=== PATIENT | male | born 1960 | race Caucasian/White ===

== ENCOUNTER 2020-01-16 11:33 | Inpatient (IN) ==
[2020-01-16] MEDS ORDERED: Isovue-370 500 ML BOTTLE IVP ONE (11:57)
[2020-01-16 12:23] LABS: Hematocrit 45.1 % (37.5-50.1); Hemoglobin 14.3 g/dL (12.9-16.9); Mean Corpuscular HGB Conc 31.7 g/dL (31.6-35.5); Mean Corpuscular Hemoglobin 28.9 pg (28.0-33.3); Mean Corpuscular Volume 91.1 fL (83.0-100.0); Mean Platelet Volume 10.7 fL (9.4-12.4); Platelet Count 319 K/mcL (140-400); Red Blood Count 4.95 M/mcL (4.19-5.50); Red Cell Distribution Width 13.6 % (11.5-14.5); White Blood Count 8.8 K/mcL (4.3-11.1)
[2020-01-16 12:33] LABS: Activated Partial Thrombo Time 30.1 Seconds (26.0-36.0)
[2020-01-16 12:42] LABS: Alanine Aminotransferase 26 Units/L (7-52); Albumin 4.2 g/dL (3.5-5.7); Alkaline Phosphatase 120 Units/L (34-104); Aspartate Amino Transferase 31 Units/L (13-39); BUN/Creatinine Ratio 16 (6-26); Bilirubin,Direct 0.2 mg/dL (0.0-0.2); Bilirubin,Indirect 0.4 mg/dL (0.0-1.0); Bilirubin,Total 0.6 mg/dL (0.3-1.0); Blood Urea Nitrogen 12 mg/dL (8-23); Calcium 9.7 mg/dL (8.6-10.3); Carbon Dioxide 25 mEq/L (23-29); Chloride 103 mEq/L (98-107); Ethanol < 10 mg/dL (Less than 10); Globulin 4.1 g/dL (2.4-3.5); Glucose 141 mg/dL (70-105); Lipase 320 Units/L (11-82); Osmolality,Calculated 286 (280-300); Potassium 4.2 mEq/L (3.5-5.1); Sodium 137 mEq/L (136-145); Total Protein 8.3 g/dL (6.4-8.9); Troponin I 0.03 ng/mL (< 0.04); eGFR For African Americans > 60 (> 60); eGFR For Non-African Americans > 60 (> 60)
[2020-01-16] MEDS ORDERED: Naloxone 0.4 MG/ML INJ IVP PRN (13:32)
[2020-01-16] MEDS ORDERED: *HR* LORazepam 2 MG/ML VIAL IVP ONE ×5 (14:11→21:00)
[2020-01-16] MEDS ORDERED: Aspirin 325 MG TABLET PO ONE (15:14)
[2020-01-16] MEDS ORDERED: *HR* Heparin 5,000 UNIT/ML VIAL IVP ONE (15:18)
[2020-01-16] MEDS ORDERED: *HR* Heparin 5,000 UNIT/ML VIAL IVP PRN ×2 (15:18)
[2020-01-16] MEDS ORDERED: Perflutren Lipid Microsphere 1.3 ML in 0.9 % Sodium Chloride 8.7 ML IVP PRN (15:20)
[2020-01-16] MEDS ORDERED: *HR* Metoprolol 5 MG/5 ML VIAL IVP ONE (15:22)
[2020-01-16] MEDS: Heparin 25,000UNIT/250ML 1/2NS 25,000 UNIT/250 ML IV.SOLN IVC SCH (16:20)
[2020-01-16] MEDS ORDERED: Haloperidol Lactate 5 MG/ML VIAL IVP ONE (17:55)
[2020-01-16] MEDS: Dexmedetomidine HCl 400 MCG/100 ML MLS IVC SCH (19:39)
[2020-01-17] MEDS: Dexmedetomidine HCl 400 MCG/100 ML MLS IVC SCH ×3 (00:29→22:34)
[2020-01-17 07:59] LABS: Basophils % 0.5 %; Eosinophils # 0.2 K/mcL (0.0-0.6); Eosinophils % 1.9 %; Hematocrit 42.3 % (37.5-50.1); Immature Granulocytes % 0.4 % (0-4); Lymphocytes # 1.1 K/mcL (0.6-4.6); Lymphocytes % 13.1 %; Mean Corpuscular HGB Conc 33.1 g/dL (31.6-35.5); Mean Corpuscular Hemoglobin 29.6 pg (28.0-33.3); Mean Corpuscular Volume 89.4 fL (83.0-100.0); Mean Platelet Volume 10.9 fL (9.4-12.4); Monocytes # 0.8 K/mcL (0.0-1.3); Monocytes % 9.4 %; Neutrophils # 6.3 K/mcL (1.6-8.9); Platelet Count 257 K/mcL (140-400); Red Blood Count 4.73 M/mcL (4.19-5.50); Red Cell Distribution Width 13.4 % (11.5-14.5); Segmented Neutrophils % 74.7 %; White Blood Count 8.4 K/mcL (4.3-11.1)
[2020-01-17 08:19] LABS: BUN/Creatinine Ratio 18 (6-26); Blood Urea Nitrogen 13 mg/dL (8-23); Calcium 9.5 mg/dL (8.6-10.3); Carbon Dioxide 23 mEq/L (23-29); Chloride 105 mEq/L (98-107); Glucose 185 mg/dL (70-105); Osmolality,Calculated 287 (280-300); Sodium 136 mEq/L (136-145); eGFR For African Americans > 60 (> 60); eGFR For Non-African Americans > 60 (> 60)
[2020-01-17] MEDS ORDERED: *HR* LORazepam 2 MG/ML VIAL IVP ONE (08:56)
[2020-01-17 10:45] LABS: Amphetamine Screen,Urine Negative ng/mL (Cutoff=1000); Barbiturate Screen,Urine Negative ng/mL (Cutoff=200); Benzodiazepines Screen,Urine Negative ng/mL (Cutoff=200); Cannabinoid Screen,Urine Negative ng/mL (Cutoff = 50); Cocaine Screen,Urine Negative ng/mL (Cutoff= 300); Opiate Screen,Urine Positive ng/mL (Cutoff=300); Phencyclidine Screen,Urine Negative ng/mL (Cutoff=25)
[2020-01-17] MEDS: Heparin 25,000UNIT/250ML 1/2NS 25,000 UNIT/250 ML IV.SOLN IVC SCH (13:28)
[2020-01-18 01:27] LABS: BUN/Creatinine Ratio 17 (6-26); Blood Urea Nitrogen 12 mg/dL (8-23); Calcium 8.8 mg/dL (8.6-10.3); Carbon Dioxide 22 mEq/L (23-29); Chloride 107 mEq/L (98-107); Glucose 123 mg/dL (70-105); Osmolality,Calculated 287 (280-300); Potassium 3.7 mEq/L (3.5-5.1); Sodium 138 mEq/L (136-145); eGFR For African Americans > 60 (> 60); eGFR For Non-African Americans > 60 (> 60)
[2020-01-18] MEDS: Dexmedetomidine HCl 400 MCG/100 ML MLS IVC SCH ×3 (03:30→19:34)
[2020-01-18 04:18] LABS: Hematocrit 40.1 % (37.5-50.1); Mean Corpuscular HGB Conc 32.4 g/dL (31.6-35.5); Mean Corpuscular Hemoglobin 29.3 pg (28.0-33.3); Mean Corpuscular Volume 90.3 fL (83.0-100.0); Mean Platelet Volume 11.2 fL (9.4-12.4); Platelet Count 261 K/mcL (140-400); Red Blood Count 4.44 M/mcL (4.19-5.50); Red Cell Distribution Width 13.4 % (11.5-14.5)
[2020-01-18 04:19] LABS: Neutrophils # 5.3 K/mcL (1.6-8.9)
[2020-01-18 04:20] LABS: Basophils % 0.3 %; Eosinophils # 0.1 K/mcL (0.0-0.6); Eosinophils % 1.6 %; Immature Granulocytes % 0.3 % (0-4); Lymphocytes # 0.8 K/mcL (0.6-4.6); Lymphocytes % 11.8 %; Monocytes # 0.7 K/mcL (0.0-1.3)
[2020-01-18] MEDS: *HR* Heparin 5,000 UNIT/ML VIAL SQ SCH ×2 (14:44→19:36)
[2020-01-18] MEDS: lisinopriL 5 MG TABLET PO SCH (14:44)
[2020-01-18] MEDS: Ibuprofen 400 MG TABLET PO PRN (17:50)
[2020-01-19] MEDS: Dexmedetomidine HCl 400 MCG/100 ML MLS IVC SCH ×3 (00:15→11:09)
[2020-01-19] MEDS: *HR* Heparin 5,000 UNIT/ML VIAL SQ SCH (04:15)
[2020-01-19 07:24] LABS: BUN/Creatinine Ratio 15 (6-26); Blood Urea Nitrogen 11 mg/dL (8-23); Calcium 9.7 mg/dL (8.6-10.3); Carbon Dioxide 26 mEq/L (23-29); Chloride 104 mEq/L (98-107); Glucose 191 mg/dL (70-105); Magnesium 1.6 mg/dL (1.6-2.6); Osmolality,Calculated 289 (280-300); Potassium 4.2 mEq/L (3.5-5.1); Sodium 137 mEq/L (136-145); eGFR For African Americans > 60 (> 60); eGFR For Non-African Americans > 60 (> 60)
[2020-01-19] MEDS: Aspirin 81 MG TAB.CHEW PO SCH (07:47)
[2020-01-19] MEDS: Furosemide 20 MG TABLET PO SCH (07:47)
[2020-01-19] MEDS: lisinopriL 5 MG TABLET PO SCH (07:48)
[2020-01-19] MEDS ORDERED: lisinopriL 5 MG TABLET PO ONE (09:43)
[2020-01-19] MEDS ORDERED: *HR* LORazepam 2 MG/ML VIAL IVP PRN ×2 (10:49)
[2020-01-19] MEDS: Ibuprofen 400 MG TABLET PO PRN (14:30)
[2020-01-19] MEDS: carvediloL 6.25 MG TABLET PO SCH (17:28)
[2020-01-20 01:16] LABS: Hematocrit 43.3 % (37.5-50.1); Hemoglobin 13.4 g/dL (12.9-16.9); Mean Corpuscular HGB Conc 30.9 g/dL (31.6-35.5); Mean Corpuscular Volume 90.6 fL (83.0-100.0); Platelet Count 272 K/mcL (140-400); Red Blood Count 4.78 M/mcL (4.19-5.50); Red Cell Distribution Width 13.2 % (11.5-14.5); White Blood Count 7.8 K/mcL (4.3-11.1)
[2020-01-20 01:37] LABS: Alanine Aminotransferase 24 Units/L (7-52); Albumin 3.7 g/dL (3.5-5.7); Albumin/Globulin Ratio 1.1 (1.1-2.2); Alkaline Phosphatase 113 Units/L (34-104); Aspartate Amino Transferase 27 Units/L (13-39); BUN/Creatinine Ratio 15 (6-26); Bilirubin,Total 0.6 mg/dL (0.3-1.0); Blood Urea Nitrogen 11 mg/dL (8-23); Calcium 9.4 mg/dL (8.6-10.3); Carbon Dioxide 28 mEq/L (23-29); Chloride 100 mEq/L (98-107); Globulin 3.4 g/dL (2.4-3.5); Glucose 135 mg/dL (70-105); Osmolality,Calculated 283 (280-300); Potassium 3.6 mEq/L (3.5-5.1); Sodium 136 mEq/L (136-145); Total Protein 7.1 g/dL (6.4-8.9); eGFR For African Americans > 60 (> 60); eGFR For Non-African Americans > 60 (> 60)
[2020-01-20] MEDS: carvediloL 6.25 MG TABLET PO SCH ×2 (08:22→16:35)
[2020-01-20] MEDS: Furosemide 20 MG TABLET PO SCH (08:22)
[2020-01-20] MEDS: Aspirin 81 MG TAB.CHEW PO SCH (08:22)
[2020-01-20] MEDS: lisinopriL 5 MG TABLET PO SCH (08:24)
[2020-01-20] MEDS: Ibuprofen 400 MG TABLET PO PRN ×2 (10:57→22:24)
[2020-01-21 02:21] LABS: Hematocrit 43.3 % (37.5-50.1); Hemoglobin 13.9 g/dL (12.9-16.9); Mean Corpuscular HGB Conc 32.1 g/dL (31.6-35.5); Mean Corpuscular Hemoglobin 28.6 pg (28.0-33.3); Mean Corpuscular Volume 89.1 fL (83.0-100.0); Mean Platelet Volume 10.7 fL (9.4-12.4); Platelet Count 281 K/mcL (140-400); Red Blood Count 4.86 M/mcL (4.19-5.50); Red Cell Distribution Width 13.5 % (11.5-14.5)
[2020-01-21 02:37] LABS: Alanine Aminotransferase 31 Units/L (7-52); Albumin 3.6 g/dL (3.5-5.7); Albumin/Globulin Ratio 1.1 (1.1-2.2); Alkaline Phosphatase 108 Units/L (34-104); Aspartate Amino Transferase 37 Units/L (13-39); BUN/Creatinine Ratio 10 (6-26); Bilirubin,Total 0.8 mg/dL (0.3-1.0); Blood Urea Nitrogen 9 mg/dL (8-23); Calcium 9.1 mg/dL (8.6-10.3); Carbon Dioxide 29 mEq/L (23-29); Chloride 101 mEq/L (98-107); Globulin 3.4 g/dL (2.4-3.5); Glucose 143 mg/dL (70-105); Osmolality,Calculated 285 (280-300); Potassium 3.4 mEq/L (3.5-5.1); Sodium 137 mEq/L (136-145); eGFR For African Americans > 60 (> 60); eGFR For Non-African Americans > 60 (> 60)
[2020-01-21] MEDS: *HR* LORazepam 2 MG/ML VIAL IVP PRN ×2 (09:09→13:16)
[2020-01-21] MEDS: Furosemide 20 MG TABLET PO SCH (09:10)
[2020-01-21] MEDS: carvediloL 6.25 MG TABLET PO SCH ×2 (09:10→17:49)
[2020-01-21] MEDS: lisinopriL 5 MG TABLET PO SCH (09:10)
[2020-01-21] MEDS: Aspirin 81 MG TAB.CHEW PO SCH (09:10)
[2020-01-21] MEDS ORDERED: *HR* LORazepam 2 MG/ML VIAL IVP ONE (15:20)
[2020-01-21 16:21] VITALS: BP 121/71
[2020-01-21] MEDS ORDERED: Thiamine (B-1) 100 MG, Folic Acid 1 MG, MVI, adult with vitamin K 10 ML in 0.9 % Sodi... IVPB SCH (18:00)
== END 2020-01-21 17:56 | disposition short-term general hospital (02) | DRG 65 ==
LOC: EMEROOARM 11:33 → 3ANU 11:33 → 2NNU 19:03 → SUATTDRO 01-18 11:50 → 2NNU 01-18 15:14 → 3BNU 01-20 20:20
PROVIDERS: ADMIT Internal Medicine; ATTEND Family Medicine

== ENCOUNTER 2020-12-15 18:31 | Inpatient (IN) ==
[2020-12-15] MEDS ORDERED: Haloperidol Lactate 5 MG/ML VIAL IVP ONE (19:02)
[2020-12-15] MEDS ORDERED: *HR* LORazepam 2 MG/ML VIAL IVP ONE ×3 (19:02→22:23)
[2020-12-15] MEDS ORDERED: *HR* LORazepam 2 MG/ML VIAL ONE ×2 (19:07→22:24)
[2020-12-15] MEDS ORDERED: 0.9 % Sodium Chloride 1,000 ML IVC ONE (19:25)
[2020-12-15] MEDS ORDERED: Isovue-370 500 ML BOTTLE IVP ONE (19:25)
[2020-12-15] MEDS ORDERED: Ipratropium/Albuterol Neb 3 ML IH ONE ×2 (19:27→23:33)
[2020-12-15 20:27] LABS: Basophils % 0.1 %; Eosinophils % 0.2 %; Hematocrit 35.7 % (37.5-50.1); Hemoglobin 12.3 g/dL (12.9-16.9); Immature Granulocytes % 0.3 % (0-4); Lymphocytes % 7.2 %; Mean Corpuscular HGB Conc 34.5 g/dL (31.6-35.5); Mean Corpuscular Volume 84.2 fL (83.0-100.0); Mean Platelet Volume 10.4 fL (9.4-12.4); Monocytes # 1.2 K/mcL (0.0-1.3); Neutrophils # 12.1 K/mcL (1.6-8.9); Platelet Count 377 K/mcL (140-400); Red Blood Count 4.24 M/mcL (4.19-5.50); Segmented Neutrophils % 84.2 %; White Blood Count 14.4 K/mcL (4.3-11.1)
[2020-12-15 21:09] LABS: Alanine Aminotransferase 37 Units/L (7-52); Albumin/Globulin Ratio 1.1 (1.1-2.2); Alkaline Phosphatase 98 Units/L (34-104); Aspartate Amino Transferase 42 Units/L (13-39); BUN/Creatinine Ratio 13 (6-26); Bilirubin,Direct 0.1 mg/dL (0.0-0.2); Bilirubin,Indirect 0.5 mg/dL (0.0-1.0); Bilirubin,Total 0.6 mg/dL (0.3-1.0); Blood Urea Nitrogen 8 mg/dL (8-23); Calcium 7.9 mg/dL (8.6-10.3); Carbon Dioxide 19 mEq/L (23-29); Chloride 87 mEq/L (98-107); Ethanol 73 mg/dL (Less than 10); Globulin 3.7 g/dL (2.4-3.5); Glucose 165 mg/dL (70-105); Magnesium 1.8 mg/dL (1.6-2.6); Osmolality,Calculated 246 (280-300); Potassium 4.3 mEq/L (3.5-5.1); Sodium 117 mEq/L (136-145); Total Protein 7.7 g/dL (6.4-8.9); Troponin I 0.06 ng/mL (< 0.04); eGFR For African Americans > 60 (> 60); eGFR For Non-African Americans > 60 (> 60)
[2020-12-15 22:01] LABS: VBG HCO3 18 mEq/L (21-27); VBG PCO2 27 mmHg (41-51); VBG PH 7.44 pH Units (7.32-7.42); VBG PO2 202 mmHg (25-50)
[2020-12-15] MEDS: Folic Acid 1 MG in 0.9 % Sodium Chloride 50 ML IVPB SCH (23:10)
[2020-12-16] MEDS: Thiamine (B-1) 200 MG in 0.9 % Sodium Chloride 50 ML IVPB SCH ×2 (00:13→09:58)
[2020-12-16 00:37] LABS: Bilirubin,Urine Negative (Negative); Blood,Urine Trace (Negative); Clarity,Urine Clear (Clear); Color,Urine Colorless (Yellow); Glucose,Urine (UA) 70 mg/dL (Normal); Ketones,Urine Negative (Negative); Leukocyte Esterase,Urine Negative (Negative); Nitrite,Urine Negative (Negative); Protein,Urine Negative (Neg-Trace); RBC,Urine 0-3 per hpf (0-3); Specific Gravity,Urine 1.023 (1.010-1.025); Squamous Epithelial Cell,Urine Few per hpf (None-Few); Urobilinogen,Urine Normal (Normal); WBC,Urine 0-3 per hpf (0-3)
[2020-12-16 00:42] LABS: Potassium,Urine 21.8 mEq/L; Sodium, Urine 16.4 mEq/L
[2020-12-16 00:57] LABS: BUN/Creatinine Ratio 9 (6-26); Blood Urea Nitrogen 7 mg/dL (8-23); Calcium 7.8 mg/dL (8.6-10.3); Carbon Dioxide 20 mEq/L (23-29); Chloride 90 mEq/L (98-107); Glucose 144 mg/dL (70-105); Osmolality,Calculated 251 (280-300); Potassium 4.4 mEq/L (3.5-5.1); Sodium 120 mEq/L (136-145); eGFR For African Americans > 60 (> 60); eGFR For Non-African Americans > 60 (> 60)
[2020-12-16] MEDS ORDERED: Naloxone 0.4 MG/ML INJ IVP PRN (02:17)
[2020-12-16] MEDS: *HR* LORazepam 2 MG/ML VIAL IVP PRN ×11 (03:33→20:59)
[2020-12-16] MEDS ORDERED: Perflutren Lipid Microsphere 1.3 ML in 0.9 % Sodium Chloride 8.7 ML IVP PRN (03:44)
[2020-12-16] MEDS ORDERED: Ondansetron 4 MG/2 ML VIAL IVP PRN (04:23)
[2020-12-16] MEDS: 0.9 % Sodium Chloride 1,000 ML IVC SCH ×2 (05:00→22:43)
[2020-12-16 05:16] LABS: Basophils % 0.1 %; Eosinophils % 0.2 %; Hematocrit 35.6 % (37.5-50.1); Immature Granulocytes % 0.3 % (0-4); Lymphocytes # 1.1 K/mcL (0.6-4.6); Lymphocytes % 7.9 %; Mean Corpuscular HGB Conc 33.7 g/dL (31.6-35.5); Mean Corpuscular Hemoglobin 28.4 pg (28.0-33.3); Mean Corpuscular Volume 84.4 fL (83.0-100.0); Mean Platelet Volume 10.2 fL (9.4-12.4); Monocytes # 1.7 K/mcL (0.0-1.3); Monocytes % 11.6 %; Neutrophils # 11.4 K/mcL (1.6-8.9); Platelet Count 295 K/mcL (140-400); Red Blood Count 4.22 M/mcL (4.19-5.50); Red Cell Distribution Width 13.8 % (11.5-14.5); Segmented Neutrophils % 79.9 %; White Blood Count 14.3 K/mcL (4.3-11.1)
[2020-12-16 05:31] LABS: BUN/Creatinine Ratio 12 (6-26); Blood Urea Nitrogen 9 mg/dL (8-23); Calcium 8.3 mg/dL (8.6-10.3); Carbon Dioxide 21 mEq/L (23-29); Chloride 91 mEq/L (98-107); Glucose 150 mg/dL (70-105); INR 1.7; Osmolality,Calculated 254 (280-300); Potassium 4.5 mEq/L (3.5-5.1); Prothrombin Time 19.7 Seconds (9.4-12.1); Sodium 121 mEq/L (136-145); eGFR For African Americans > 60 (> 60); eGFR For Non-African Americans > 60 (> 60)
[2020-12-16 07:00] LABS: Adenovirus Not Detected (Not Detect); Bordetella Pertussis Not Detected (Not Detect); Chlamydophila pneumoniae Not Detected (Not Detect); Coronavirus 229E Not Detected (Not Detect); Coronavirus HKU1 Not Detected (Not Detect); Coronavirus NL63 Not Detected (Not Detect); Coronavirus OC43 Not Detected (Not Detect); Human Metapneumovirus Not Detected (Not Detect); Human Rhinovirus/Enterovirus Not Detected (Not Detect); Influenza A Subtype 2009 H1 Not Detected (Not Detect); Influenza B Not Detected (Not Detect); Mycoplasma pneumoniae Not Detected (Not Detect); Parainfluenza Virus 1 Not Detected (Not Detect); Parainfluenza Virus 2 Not Detected (Not Detect); Parainfluenza Virus 3 Not Detected (Not Detect); Parainfluenza Virus 4 Not Detected (Not Detect); Respiratory Syncytial Virus Not Detected (Not Detect); SARS-CoV-2 Not Detected (Not Detect)
[2020-12-16 07:01] LABS: BUN/Creatinine Ratio 13 (6-26); Blood Urea Nitrogen 9 mg/dL (8-23); Calcium 8.2 mg/dL (8.6-10.3); Carbon Dioxide 21 mEq/L (23-29); Chloride 92 mEq/L (98-107); Glucose 155 mg/dL (70-105); Osmolality,Calculated 254 (280-300); Potassium 4.7 mEq/L (3.5-5.1); Sodium 121 mEq/L (136-145); Thyroid Stimulating Hormone 1.734 mcIU/mL (0.340-5.600); Troponin I 0.05 ng/mL (< 0.04); eGFR For African Americans > 60 (> 60); eGFR For Non-African Americans > 60 (> 60)
[2020-12-16] MEDS ORDERED: Thiamine (B-1) 200 MG in 0.9 % Sodium Chloride 50 ML IVPB SCH (09:00)
[2020-12-16] MEDS: Folic Acid 1 MG in 0.9 % Sodium Chloride 50 ML IVPB SCH (09:54)
[2020-12-16 12:23] LABS: Basophils % 0.3 %; Eosinophils % 0.3 %; Hematocrit 33.2 % (37.5-50.1); Hemoglobin 10.9 g/dL (12.9-16.9); Immature Granulocytes % 0.4 % (0-4); Lymphocytes % 8.2 %; Mean Corpuscular HGB Conc 32.8 g/dL (31.6-35.5); Mean Corpuscular Hemoglobin 27.9 pg (28.0-33.3); Mean Corpuscular Volume 85.1 fL (83.0-100.0); Mean Platelet Volume 10.4 fL (9.4-12.4); Monocytes # 1.2 K/mcL (0.0-1.3); Monocytes % 9.9 %; Neutrophils # 9.7 K/mcL (1.6-8.9); Platelet Count 296 K/mcL (140-400); Red Cell Distribution Width 13.9 % (11.5-14.5); Segmented Neutrophils % 80.9 %
[2020-12-16 13:00] LABS: BUN/Creatinine Ratio 13 (6-26); Blood Urea Nitrogen 9 mg/dL (8-23); Calcium 8.1 mg/dL (8.6-10.3); Carbon Dioxide 22 mEq/L (23-29); Chloride 95 mEq/L (98-107); Glucose 152 mg/dL (70-105); Osmolality,Calculated 260 (280-300); Potassium 4.5 mEq/L (3.5-5.1); Sodium 124 mEq/L (136-145); Troponin I 0.05 ng/mL (< 0.04); eGFR For African Americans > 60 (> 60); eGFR For Non-African Americans > 60 (> 60)
[2020-12-16] MEDS: Dexmedetomidine HCl 400 MCG/100 ML MLS IVC SCH (14:52)
[2020-12-16 15:40] LABS: Magnesium 1.8 mg/dL (1.6-2.6)
[2020-12-16] MEDS: *HR* Enoxaparin 120 MG/0.8 ML SYRINGE SQ SCH (20:01)
[2020-12-16 20:32] LABS: Basophils % 0.1 %; Eosinophils # 0.1 K/mcL (0.0-0.6); Eosinophils % 1.6 %; Hematocrit 30.1 % (37.5-50.1); Hemoglobin 10.1 g/dL (12.9-16.9); Immature Granulocytes % 0.4 % (0-4); Lymphocytes # 0.7 K/mcL (0.6-4.6); Mean Corpuscular HGB Conc 33.6 g/dL (31.6-35.5); Mean Corpuscular Hemoglobin 28.7 pg (28.0-33.3); Mean Corpuscular Volume 85.5 fL (83.0-100.0); Mean Platelet Volume 10.5 fL (9.4-12.4); Monocytes # 0.8 K/mcL (0.0-1.3); Monocytes % 9.7 %; Neutrophils # 6.3 K/mcL (1.6-8.9); Platelet Count 249 K/mcL (140-400); Red Blood Count 3.52 M/mcL (4.19-5.50); Segmented Neutrophils % 79.2 %
[2020-12-16 20:51] LABS: BUN/Creatinine Ratio 15 (6-26); Blood Urea Nitrogen 9 mg/dL (8-23); Carbon Dioxide 23 mEq/L (23-29); Chloride 102 mEq/L (98-107); Glucose 151 mg/dL (70-105); Osmolality,Calculated 272 (280-300); Potassium 4.1 mEq/L (3.5-5.1); Sodium 130 mEq/L (136-145); eGFR For African Americans > 60 (> 60); eGFR For Non-African Americans > 60 (> 60)
[2020-12-16] MEDS ORDERED: Haloperidol Lactate 5 MG/ML VIAL IVP ONE (21:29)
[2020-12-16 23:07] LABS: Staphylococcus by PCR DETECTED (Not Detect); mecA Methicillin-Resist Gene Not Detected (Not Detect)
[2020-12-16 23:08] LABS: Acinetobacter baumannii by PCR Not Detected (Not Detect); Candida albicans by PCR Not Detected (Not Detect); Candida glabrata by PCR Not Detected (Not Detect); Candida krusei by PCR Not Detected (Not Detect); Candida parapsilosis by PCR Not Detected (Not Detect); Candida tropicalis by PCR Not Detected (Not Detect); Enterobacter cloacae Cmplx PCR Not Detected (Not Detect); Enterobacteriaceae by PCR Not Detected (Not Detect); Enterococcus by PCR Not Detected (Not Detect); Escherichia coli by PCR Not Detected (Not Detect); Klebsiella oxytoca by PCR Not Detected (Not Detect); Klebsiella pneumoniae by PCR Not Detected (Not Detect); Proteus by PCR Not Detected (Not Detect); Pseudomonas aeruginosa by PCR Not Detected (Not Detect); Serratia marcescens by PCR Not Detected (Not Detect); Staphylococcus aureus by PCR Not Detected (Not Detect); Streptococcus agalactiae(B)PCR Not Detected (Not Detect); Streptococcus by PCR Not Detected (Not Detect); Streptococcus pneumoniae PCR Not Detected (Not Detect); Streptococcus pyogenes (A) PCR Not Detected (Not Detect)
[2020-12-17] MEDS: Dexmedetomidine HCl 400 MCG/100 ML MLS IVC SCH ×5 (03:02→22:24)
[2020-12-17] MEDS: *HR* LORazepam 2 MG/ML VIAL IVP PRN ×5 (03:03→22:20)
[2020-12-17 03:56] LABS: Basophils % 0.5 %; Eosinophils # 0.2 K/mcL (0.0-0.6); Eosinophils % 2.1 %; Hematocrit 33.1 % (37.5-50.1); Immature Granulocytes % 0.4 % (0-4); Lymphocytes # 0.9 K/mcL (0.6-4.6); Lymphocytes % 11.2 %; Mean Corpuscular HGB Conc 33.2 g/dL (31.6-35.5); Mean Corpuscular Hemoglobin 28.7 pg (28.0-33.3); Mean Corpuscular Volume 86.4 fL (83.0-100.0); Mean Platelet Volume 10.9 fL (9.4-12.4); Monocytes # 0.7 K/mcL (0.0-1.3); Monocytes % 9.3 %; Neutrophils # 5.9 K/mcL (1.6-8.9); Platelet Count 269 K/mcL (140-400); Red Blood Count 3.83 M/mcL (4.19-5.50); Segmented Neutrophils % 76.5 %; White Blood Count 7.8 K/mcL (4.3-11.1)
[2020-12-17 04:18] LABS: Alanine Aminotransferase 26 Units/L (7-52); Albumin 3.3 g/dL (3.5-5.7); Albumin/Globulin Ratio 1.1 (1.1-2.2); Alkaline Phosphatase 96 Units/L (34-104); Aspartate Amino Transferase 31 Units/L (13-39); BUN/Creatinine Ratio 14 (6-26); Bilirubin,Total 1.1 mg/dL (0.3-1.0); Blood Urea Nitrogen 8 mg/dL (8-23); Calcium 8.3 mg/dL (8.6-10.3); Carbon Dioxide 22 mEq/L (23-29); Chloride 106 mEq/L (98-107); Globulin 3.1 g/dL (2.4-3.5); Glucose 171 mg/dL (70-105); Osmolality,Calculated 280 (280-300); Sodium 134 mEq/L (136-145); Total Protein 6.4 g/dL (6.4-8.9); eGFR For African Americans > 60 (> 60); eGFR For Non-African Americans > 60 (> 60)
[2020-12-17] MEDS ORDERED: D5% in Water 1,000 ML IVC SCH (06:00)
[2020-12-17] MEDS: *HR* Enoxaparin 120 MG/0.8 ML SYRINGE SQ SCH ×2 (06:09→16:57)
[2020-12-17] MEDS: Levalbuterol Neb 0.63 MG/3 ML IH PRN (09:45)
[2020-12-17 11:03] LABS: BUN/Creatinine Ratio 16 (6-26); Blood Urea Nitrogen 9 mg/dL (8-23); Calcium 8.2 mg/dL (8.6-10.3); Carbon Dioxide 22 mEq/L (23-29); Chloride 107 mEq/L (98-107); Glucose 199 mg/dL (70-105); Osmolality,Calculated 284 (280-300); Potassium 4.2 mEq/L (3.5-5.1); Sodium 135 mEq/L (136-145); eGFR For African Americans > 60 (> 60); eGFR For Non-African Americans > 60 (> 60)
[2020-12-17] MEDS ORDERED: Thiamine (B-1) 100 MG, Folic Acid 1 MG, MVI, adult with vitamin K 10 ML in 0.9 % Sodi... IVPB SCH (13:00)
[2020-12-17] MEDS: Doxycycline 100 MG in 0.9 % Sodium Chloride Mini Bag 100 ML IVPB SCH ×2 (13:20→16:58)
[2020-12-17] MEDS: Folic Acid 1 MG in 0.9 % Sodium Chloride 50 ML IVPB SCH (13:21)
[2020-12-17] MEDS: Thiamine (B-1) 200 MG in 0.9 % Sodium Chloride 50 ML IVPB SCH (13:21)
[2020-12-17 22:32] LABS: BUN/Creatinine Ratio 14 (6-26); Blood Urea Nitrogen 9 mg/dL (8-23); Calcium 8.1 mg/dL (8.6-10.3); Carbon Dioxide 24 mEq/L (23-29); Chloride 107 mEq/L (98-107); Glucose 163 mg/dL (70-105); Osmolality,Calculated 284 (280-300); Sodium 136 mEq/L (136-145); eGFR For African Americans > 60 (> 60); eGFR For Non-African Americans > 60 (> 60)
[2020-12-18] MEDS: Dexmedetomidine HCl 400 MCG/100 ML MLS IVC SCH ×2 (03:23→20:32)
[2020-12-18] MEDS: Doxycycline 100 MG in 0.9 % Sodium Chloride Mini Bag 100 ML IVPB SCH ×2 (04:34→21:07)
[2020-12-18] MEDS: *HR* Enoxaparin 120 MG/0.8 ML SYRINGE SQ SCH ×2 (04:36→21:06)
[2020-12-18 05:39] LABS: Basophils # 0.1 K/mcL (0.0-0.2); Basophils % 0.5 %; Eosinophils # 0.3 K/mcL (0.0-0.6); Eosinophils % 2.5 %; Hematocrit 33.6 % (37.5-50.1); Hemoglobin 10.8 g/dL (12.9-16.9); Immature Granulocytes % 0.7 % (0-4); Lymphocytes # 1.1 K/mcL (0.6-4.6); Lymphocytes % 10.6 %; Mean Corpuscular HGB Conc 32.1 g/dL (31.6-35.5); Mean Corpuscular Hemoglobin 27.9 pg (28.0-33.3); Mean Corpuscular Volume 86.8 fL (83.0-100.0); Mean Platelet Volume 10.8 fL (9.4-12.4); Monocytes # 0.9 K/mcL (0.0-1.3); Monocytes % 8.9 %; Neutrophils # 7.7 K/mcL (1.6-8.9); Platelet Count 298 K/mcL (140-400); Red Blood Count 3.87 M/mcL (4.19-5.50); Red Cell Distribution Width 14.2 % (11.5-14.5); Segmented Neutrophils % 76.8 %
[2020-12-18 05:44] LABS: Alanine Aminotransferase 23 Units/L (7-52); Albumin 3.3 g/dL (3.5-5.7); Albumin/Globulin Ratio 1.1 (1.1-2.2); Alkaline Phosphatase 103 Units/L (34-104); Aspartate Amino Transferase 20 Units/L (13-39); BUN/Creatinine Ratio 14 (6-26); Bilirubin,Direct 0.2 mg/dL (0.0-0.2); Bilirubin,Indirect 0.5 mg/dL (0.0-1.0); Bilirubin,Total 0.7 mg/dL (0.3-1.0); Blood Urea Nitrogen 9 mg/dL (8-23); Calcium 8.3 mg/dL (8.6-10.3); Carbon Dioxide 25 mEq/L (23-29); Chloride 107 mEq/L (98-107); Globulin 2.9 g/dL (2.4-3.5); Glucose 147 mg/dL (70-105); Magnesium 2.2 mg/dL (1.6-2.6); Osmolality,Calculated 283 (280-300); Potassium 3.9 mEq/L (3.5-5.1); Sodium 136 mEq/L (136-145); Total Protein 6.2 g/dL (6.4-8.9); eGFR For African Americans > 60 (> 60); eGFR For Non-African Americans > 60 (> 60)
[2020-12-18 06:21] LABS: INR 1.6; Prothrombin Time 18.4 Seconds (9.4-12.1)
[2020-12-18] MEDS: *HR* LORazepam 2 MG/ML VIAL IVP PRN ×4 (06:50→21:01)
[2020-12-18] MEDS: Aspirin Enteric Coated 81 MG Tablet PO SCH (08:14)
[2020-12-18] MEDS ORDERED: lisinopriL 5 MG TABLET PO SCH (09:00)
[2020-12-18 10:49] LABS: Magnesium 2.3 mg/dL (1.6-2.6); Phosphorous 2.1 mg/dL (2.7-4.5)
[2020-12-18] MEDS ORDERED: Thiamine (B-1) 100 MG, Folic Acid 1 MG, MVI, adult with vitamin K 10 ML in 0.9 % Sodi... IVPB SCH (13:00)
[2020-12-19] MEDS: Dexmedetomidine HCl 400 MCG/100 ML MLS IVC SCH ×3 (00:06→09:40)
[2020-12-19 02:56] LABS: Basophils % 0.4 %; Eosinophils # 0.3 K/mcL (0.0-0.6); Eosinophils % 2.7 %; Hematocrit 34.1 % (37.5-50.1); Hemoglobin 11.1 g/dL (12.9-16.9); Immature Granulocytes % 0.6 % (0-4); Lymphocytes # 1.3 K/mcL (0.6-4.6); Lymphocytes % 12.6 %; Mean Corpuscular HGB Conc 32.6 g/dL (31.6-35.5); Mean Corpuscular Hemoglobin 28.5 pg (28.0-33.3); Mean Corpuscular Volume 87.4 fL (83.0-100.0); Mean Platelet Volume 10.5 fL (9.4-12.4); Monocytes # 1.1 K/mcL (0.0-1.3); Monocytes % 9.8 %; Neutrophils # 7.9 K/mcL (1.6-8.9); Platelet Count 315 K/mcL (140-400); Red Cell Distribution Width 14.3 % (11.5-14.5); Segmented Neutrophils % 73.9 %; White Blood Count 10.7 K/mcL (4.3-11.1)
[2020-12-19 03:05] LABS: INR 1.5; Prothrombin Time 16.2 Seconds (9.4-12.1)
[2020-12-19 03:10] LABS: BUN/Creatinine Ratio 17 (6-26); Blood Urea Nitrogen 9 mg/dL (8-23); Calcium 8.4 mg/dL (8.6-10.3); Carbon Dioxide 21 mEq/L (23-29); Chloride 108 mEq/L (98-107); Glucose 140 mg/dL (70-105); Osmolality,Calculated 283 (280-300); Potassium 3.8 mEq/L (3.5-5.1); Sodium 136 mEq/L (136-145); eGFR For African Americans > 60 (> 60); eGFR For Non-African Americans > 60 (> 60)
[2020-12-19] MEDS: *HR* LORazepam 2 MG/ML VIAL IVP PRN ×2 (05:37→23:12)
[2020-12-19] MEDS: *HR* Enoxaparin 120 MG/0.8 ML SYRINGE SQ SCH ×2 (05:41→18:24)
[2020-12-19] MEDS: Doxycycline 100 MG in 0.9 % Sodium Chloride Mini Bag 100 ML IVPB SCH ×2 (05:42→18:23)
[2020-12-19] MEDS ORDERED: Furosemide 20 MG/2 ML VIAL IVP ONE (09:53)
[2020-12-19] MEDS ORDERED: Sennosides/Docusate Sodium TABLET PO ONE (12:47)
[2020-12-19] MEDS: Aspirin Enteric Coated 81 MG Tablet PO SCH (16:10)
[2020-12-19] MEDS: lisinopriL 5 MG TABLET PO SCH (16:11)
[2020-12-19] MEDS: Furosemide 40 MG TABLET PO SCH (16:11)
[2020-12-19] MEDS: Levalbuterol Neb 0.63 MG/3 ML IH PRN (17:20)
[2020-12-20] MEDS: *HR* LORazepam 2 MG/ML VIAL IVP PRN ×4 (01:29→18:24)
[2020-12-20] MEDS ORDERED: *HR* Metoprolol 5 MG/5 ML VIAL IVP ONE ×2 (02:58→18:00)
[2020-12-20] MEDS: Levalbuterol Neb 0.63 MG/3 ML IH PRN (03:29)
[2020-12-20 05:50] LABS: Basophils # 0.1 K/mcL (0.0-0.2); Basophils % 0.6 %; Eosinophils # 0.2 K/mcL (0.0-0.6); Eosinophils % 1.7 %; Hematocrit 36.5 % (37.5-50.1); Hemoglobin 11.8 g/dL (12.9-16.9); Immature Granulocytes % 0.8 % (0-4); Lymphocytes # 1.5 K/mcL (0.6-4.6); Lymphocytes % 13.7 %; Mean Corpuscular HGB Conc 32.3 g/dL (31.6-35.5); Mean Corpuscular Hemoglobin 28.6 pg (28.0-33.3); Mean Corpuscular Volume 88.4 fL (83.0-100.0); Mean Platelet Volume 9.9 fL (9.4-12.4); Monocytes # 1.2 K/mcL (0.0-1.3); Monocytes % 11.5 %; Neutrophils # 7.6 K/mcL (1.6-8.9); Platelet Count 384 K/mcL (140-400); Red Blood Count 4.13 M/mcL (4.19-5.50); Red Cell Distribution Width 15.1 % (11.5-14.5); Segmented Neutrophils % 71.7 %; White Blood Count 10.6 K/mcL (4.3-11.1)
[2020-12-20 05:56] LABS: INR 1.3; Prothrombin Time 14.2 Seconds (9.4-12.1)
[2020-12-20] MEDS: Doxycycline 100 MG in 0.9 % Sodium Chloride Mini Bag 100 ML IVPB SCH ×2 (05:56→17:56)
[2020-12-20] MEDS: *HR* Enoxaparin 120 MG/0.8 ML SYRINGE SQ SCH ×2 (05:56→17:56)
[2020-12-20 06:08] LABS: BUN/Creatinine Ratio 16 (6-26); Blood Urea Nitrogen 12 mg/dL (8-23); Calcium 9.1 mg/dL (8.6-10.3); Carbon Dioxide 23 mEq/L (23-29); Chloride 104 mEq/L (98-107); Glucose 94 mg/dL (70-105); Osmolality,Calculated 284 (280-300); Phosphorous 3.3 mg/dL (2.7-4.5); Potassium 3.7 mEq/L (3.5-5.1); Sodium 137 mEq/L (136-145); eGFR For African Americans > 60 (> 60); eGFR For Non-African Americans > 60 (> 60)
[2020-12-20] MEDS ORDERED: Metoprolol XL (24 HR) Succ 25 MG TAB.ER.24H PO SCH (09:00)
[2020-12-20] MEDS: Aspirin Enteric Coated 81 MG Tablet PO SCH (09:46)
[2020-12-20] MEDS: lisinopriL 5 MG TABLET PO SCH (09:46)
[2020-12-20] MEDS: Furosemide 40 MG TABLET PO SCH (09:46)
[2020-12-20] MEDS ORDERED: Potassium Chloride Elixir 20 MEQ/15 ML UDC PO ONE (13:16)
[2020-12-20] MEDS ORDERED: *HR* Warfarin 3 MG TABLET PO ONE (18:00)
[2020-12-20] MEDS ORDERED: Warfarin perPT PO PRN (18:00)
[2020-12-20] MEDS: Metoprolol XL (24 HR) Succ 25 MG TAB.ER.24H PO SCH (20:23)
[2020-12-21] MEDS: *HR* LORazepam 2 MG/ML VIAL IVP PRN ×5 (00:52→17:30)
[2020-12-21 01:40] LABS: INR 1.3; Prothrombin Time 14.8 Seconds (9.4-12.1)
[2020-12-21 01:49] LABS: BUN/Creatinine Ratio 18 (6-26); Blood Urea Nitrogen 16 mg/dL (8-23); Calcium 9.4 mg/dL (8.6-10.3); Carbon Dioxide 19 mEq/L (23-29); Chloride 102 mEq/L (98-107); Glucose 119 mg/dL (70-105); Osmolality,Calculated 280 (280-300); Potassium 3.8 mEq/L (3.5-5.1); Sodium 134 mEq/L (136-145); eGFR For African Americans > 60 (> 60); eGFR For Non-African Americans > 60 (> 60)
[2020-12-21] MEDS: Doxycycline 100 MG in 0.9 % Sodium Chloride Mini Bag 100 ML IVPB SCH ×2 (05:53→17:30)
[2020-12-21] MEDS: *HR* Enoxaparin 120 MG/0.8 ML SYRINGE SQ SCH ×2 (05:53→17:43)
[2020-12-21] MEDS: Aspirin Enteric Coated 81 MG Tablet PO SCH (07:38)
[2020-12-21] MEDS: Metoprolol XL (24 HR) Succ 25 MG TAB.ER.24H PO SCH ×3 (07:38→21:08)
[2020-12-21] MEDS: lisinopriL 5 MG TABLET PO SCH (07:38)
[2020-12-21] MEDS: Acetaminophen 325 MG TABLET PO PRN (11:52)
[2020-12-21] MEDS: levETIRAcetam 250 MG TABLET PO SCH (17:30)
[2020-12-21] MEDS ORDERED: *HR* Warfarin 5 MG TABLET PO ONE (18:00)
[2020-12-22] MEDS: *HR* LORazepam 2 MG/ML VIAL IVP PRN ×4 (01:53→17:28)
[2020-12-22 05:35] LABS: INR 1.4; Prothrombin Time 15.2 Seconds (9.4-12.1)
[2020-12-22 05:59] LABS: BUN/Creatinine Ratio 15 (6-26); Blood Urea Nitrogen 11 mg/dL (8-23); Calcium 9.1 mg/dL (8.6-10.3); Carbon Dioxide 21 mEq/L (23-29); Chloride 105 mEq/L (98-107); Glucose 135 mg/dL (70-105); Magnesium 1.7 mg/dL (1.6-2.6); Osmolality,Calculated 281 (280-300); Potassium 4.2 mEq/L (3.5-5.1); Sodium 135 mEq/L (136-145); eGFR For African Americans > 60 (> 60); eGFR For Non-African Americans > 60 (> 60)
[2020-12-22] MEDS: levETIRAcetam 250 MG TABLET PO SCH ×2 (06:14→17:29)
[2020-12-22] MEDS: *HR* Enoxaparin 120 MG/0.8 ML SYRINGE SQ SCH (06:14)
[2020-12-22 08:38] LABS: Thyroid Stimulating Hormone 1.705 mcIU/mL (0.340-5.600)
[2020-12-22] MEDS: Aspirin Enteric Coated 81 MG Tablet PO SCH (09:19)
[2020-12-22] MEDS: Metoprolol XL (24 HR) Succ 25 MG TAB.ER.24H PO SCH ×2 (09:19→21:14)
[2020-12-22] MEDS: lisinopriL 5 MG TABLET PO SCH (09:20)
[2020-12-22] MEDS: Doxycycline 100 MG in 0.9 % Sodium Chloride Mini Bag 100 ML IVPB SCH ×2 (09:21→21:13)
[2020-12-22] MEDS: Nicotine 21 MG PATCH.TD24 TD SCH (12:34)
[2020-12-22] MEDS: *HR* Enoxaparin 100 MG/ML SYRINGE SQ SCH (17:29)
[2020-12-22] MEDS ORDERED: *HR* Warfarin 5 MG TABLET PO ONE (18:00)
[2020-12-22] MEDS: Acetaminophen 325 MG TABLET PO PRN (21:24)
[2020-12-23] MEDS ORDERED: *HR* LORazepam 2 MG/ML VIAL IVP ONE (04:42)
[2020-12-23] MEDS: *HR* Enoxaparin 100 MG/ML SYRINGE SQ SCH ×2 (04:49→16:31)
[2020-12-23] MEDS: levETIRAcetam 250 MG TABLET PO SCH ×2 (04:49→16:31)
[2020-12-23 06:21] LABS: Basophils % 0.5 %; Eosinophils # 0.5 K/mcL (0.0-0.6); Eosinophils % 5.8 %; Hematocrit 35.2 % (37.5-50.1); Hemoglobin 11.2 g/dL (12.9-16.9); Immature Granulocytes % 0.6 % (0-4); Lymphocytes # 1.8 K/mcL (0.6-4.6); Lymphocytes % 23.1 %; Mean Corpuscular HGB Conc 31.8 g/dL (31.6-35.5); Mean Corpuscular Hemoglobin 28.2 pg (28.0-33.3); Mean Corpuscular Volume 88.7 fL (83.0-100.0); Mean Platelet Volume 10.4 fL (9.4-12.4); Monocytes # 0.9 K/mcL (0.0-1.3); Monocytes % 11.6 %; Neutrophils # 4.6 K/mcL (1.6-8.9); Platelet Count 379 K/mcL (140-400); Red Blood Count 3.97 M/mcL (4.19-5.50); Red Cell Distribution Width 15.4 % (11.5-14.5); Segmented Neutrophils % 58.4 %; White Blood Count 7.8 K/mcL (4.3-11.1)
[2020-12-23 06:23] LABS: BUN/Creatinine Ratio 14 (6-26); Blood Urea Nitrogen 9 mg/dL (8-23); Calcium 9.4 mg/dL (8.6-10.3); Carbon Dioxide 24 mEq/L (23-29); Chloride 107 mEq/L (98-107); Glucose 117 mg/dL (70-105); Osmolality,Calculated 290 (280-300); Sodium 140 mEq/L (136-145); eGFR For African Americans > 60 (> 60); eGFR For Non-African Americans > 60 (> 60)
[2020-12-23 06:32] LABS: INR 1.4; Prothrombin Time 15.8 Seconds (9.4-12.1)
[2020-12-23] MEDS: Aspirin Enteric Coated 81 MG Tablet PO SCH (09:10)
[2020-12-23] MEDS: lisinopriL 5 MG TABLET PO SCH (09:10)
[2020-12-23] MEDS: Metoprolol XL (24 HR) Succ 25 MG TAB.ER.24H PO SCH ×2 (09:11→20:50)
[2020-12-23] MEDS: Doxycycline 100 MG in 0.9 % Sodium Chloride Mini Bag 100 ML IVPB SCH ×2 (09:11→21:21)
[2020-12-23] MEDS: Nicotine 21 MG PATCH.TD24 TD SCH (09:12)
[2020-12-23] MEDS ORDERED: HydrOXYzine 100 MG/2 ML VIAL IM ONE (09:26)
[2020-12-23] MEDS ORDERED: HydrOXYzine 100 MG/2 ML VIAL IM PRN (12:00)
[2020-12-23] MEDS: Acetaminophen 325 MG TABLET PO PRN (16:31)
[2020-12-23] MEDS ORDERED: *HR* Warfarin 7.5 MG TABLET PO ONE (18:00)
[2020-12-24] MEDS: Acetaminophen 325 MG TABLET PO PRN ×4 (02:34→21:56)
[2020-12-24] MEDS: *HR* Enoxaparin 100 MG/ML SYRINGE SQ SCH (06:36)
[2020-12-24] MEDS: levETIRAcetam 250 MG TABLET PO SCH ×2 (06:36→17:16)
[2020-12-24 07:02] LABS: Basophils % 0.4 %; Eosinophils # 0.3 K/mcL (0.0-0.6); Eosinophils % 4.4 %; Hemoglobin 9.9 g/dL (12.9-16.9); Immature Granulocytes % 0.7 % (0-4); Lymphocytes # 1.7 K/mcL (0.6-4.6); Lymphocytes % 21.9 %; Mean Corpuscular HGB Conc 31.9 g/dL (31.6-35.5); Mean Corpuscular Hemoglobin 27.7 pg (28.0-33.3); Mean Corpuscular Volume 86.8 fL (83.0-100.0); Mean Platelet Volume 10.2 fL (9.4-12.4); Monocytes # 0.8 K/mcL (0.0-1.3); Monocytes % 10.8 %; Neutrophils # 4.7 K/mcL (1.6-8.9); Platelet Count 315 K/mcL (140-400); Red Blood Count 3.57 M/mcL (4.19-5.50); Red Cell Distribution Width 15.5 % (11.5-14.5); Segmented Neutrophils % 61.8 %; White Blood Count 7.5 K/mcL (4.3-11.1)
[2020-12-24 07:20] LABS: BUN/Creatinine Ratio 14 (6-26); Blood Urea Nitrogen 10 mg/dL (8-23); Calcium 8.7 mg/dL (8.6-10.3); Carbon Dioxide 26 mEq/L (23-29); Chloride 104 mEq/L (98-107); Glucose 115 mg/dL (70-105); Magnesium 1.5 mg/dL (1.6-2.6); Osmolality,Calculated 278 (280-300); Sodium 134 mEq/L (136-145); eGFR For African Americans > 60 (> 60); eGFR For Non-African Americans > 60 (> 60)
[2020-12-24 08:40] LABS: Ferritin 50 ng/mL (20-250)
[2020-12-24] MEDS: Doxycycline 100 MG in 0.9 % Sodium Chloride Mini Bag 100 ML IVPB SCH (08:45)
[2020-12-24] MEDS: Nicotine 21 MG PATCH.TD24 TD SCH (08:46)
[2020-12-24] MEDS: Aspirin Enteric Coated 81 MG Tablet PO SCH (08:46)
[2020-12-24] MEDS: lisinopriL 5 MG TABLET PO SCH (08:49)
[2020-12-24] MEDS: Metoprolol XL (24 HR) Succ 25 MG TAB.ER.24H PO SCH ×3 (08:50→21:57)
[2020-12-24] MEDS ORDERED: Ringers Solution, Lactated 1,000 ML IVC ONE (09:18)
[2020-12-24] MEDS ORDERED: Ibuprofen 600 MG TABLET PO ONE ×2 (12:25→12:27)
[2020-12-24 14:12] LABS: Prothrombin Time 22.7 Seconds (9.4-12.1)
[2020-12-25] MEDS: Acetaminophen 325 MG TABLET PO PRN ×3 (05:20→20:51)
[2020-12-25] MEDS: levETIRAcetam 250 MG TABLET PO SCH ×2 (05:20→16:44)
[2020-12-25 07:06] LABS: Basophils % 0.6 %; Eosinophils # 0.3 K/mcL (0.0-0.6); Eosinophils % 3.6 %; Hematocrit 33.1 % (37.5-50.1); Hemoglobin 10.3 g/dL (12.9-16.9); Immature Granulocytes % 0.6 % (0-4); Lymphocytes # 1.4 K/mcL (0.6-4.6); Lymphocytes % 19.6 %; Mean Corpuscular HGB Conc 31.1 g/dL (31.6-35.5); Mean Corpuscular Volume 89.9 fL (83.0-100.0); Mean Platelet Volume 10.3 fL (9.4-12.4); Monocytes # 0.7 K/mcL (0.0-1.3); Monocytes % 9.7 %; Neutrophils # 4.7 K/mcL (1.6-8.9); Platelet Count 313 K/mcL (140-400); Red Blood Count 3.68 M/mcL (4.19-5.50); Red Cell Distribution Width 15.7 % (11.5-14.5); Segmented Neutrophils % 65.9 %; White Blood Count 7.1 K/mcL (4.3-11.1)
[2020-12-25 07:12] LABS: INR 1.6; Prothrombin Time 18.3 Seconds (9.4-12.1)
[2020-12-25 07:19] LABS: BUN/Creatinine Ratio 13 (6-26); Blood Urea Nitrogen 9 mg/dL (8-23); Calcium 9.2 mg/dL (8.6-10.3); Carbon Dioxide 26 mEq/L (23-29); Chloride 104 mEq/L (98-107); Glucose 146 mg/dL (70-105); Magnesium 1.7 mg/dL (1.6-2.6); Osmolality,Calculated 281 (280-300); Potassium 4.2 mEq/L (3.5-5.1); Sodium 135 mEq/L (136-145); eGFR For African Americans > 60 (> 60); eGFR For Non-African Americans > 60 (> 60)
[2020-12-25] MEDS: Thiamine (B-1) 100 MG TABLET PO SCH (09:32)
[2020-12-25] MEDS: Vitamin B Complex/Vit C/Vit E 1 EACH TABLET PO SCH (09:33)
[2020-12-25] MEDS: Aspirin Enteric Coated 81 MG Tablet PO SCH (09:33)
[2020-12-25] MEDS: Nicotine 21 MG PATCH.TD24 TD SCH (09:33)
[2020-12-25] MEDS: Metoprolol XL (24 HR) Succ 25 MG TAB.ER.24H PO SCH ×2 (09:33→20:46)
[2020-12-25] MEDS ORDERED: *HR* Warfarin 5 MG TABLET PO ONE (18:00)
[2020-12-26] MEDS: Acetaminophen 325 MG TABLET PO PRN ×4 (02:50→23:16)
[2020-12-26] MEDS: levETIRAcetam 250 MG TABLET PO SCH ×2 (05:14→17:40)
[2020-12-26 05:49] LABS: Basophils % 0.5 %; Eosinophils # 0.3 K/mcL (0.0-0.6); Hematocrit 33.5 % (37.5-50.1); Hemoglobin 10.7 g/dL (12.9-16.9); Immature Granulocytes % 0.4 % (0-4); Lymphocytes # 1.3 K/mcL (0.6-4.6); Lymphocytes % 14.9 %; Mean Corpuscular HGB Conc 31.9 g/dL (31.6-35.5); Mean Corpuscular Hemoglobin 27.8 pg (28.0-33.3); Mean Platelet Volume 10.1 fL (9.4-12.4); Monocytes # 0.7 K/mcL (0.0-1.3); Monocytes % 8.7 %; Neutrophils # 6.1 K/mcL (1.6-8.9); Platelet Count 330 K/mcL (140-400); Red Blood Count 3.85 M/mcL (4.19-5.50); Red Cell Distribution Width 15.5 % (11.5-14.5); Segmented Neutrophils % 72.5 %; White Blood Count 8.4 K/mcL (4.3-11.1)
[2020-12-26 06:11] LABS: INR 1.6; Prothrombin Time 18.1 Seconds (9.4-12.1)
[2020-12-26 06:16] LABS: BUN/Creatinine Ratio 9 (6-26); Blood Urea Nitrogen 6 mg/dL (8-23); Calcium 9.3 mg/dL (8.6-10.3); Carbon Dioxide 24 mEq/L (23-29); Chloride 100 mEq/L (98-107); Glucose 131 mg/dL (70-105); Magnesium 1.6 mg/dL (1.6-2.6); Osmolality,Calculated 273 (280-300); Potassium 4.2 mEq/L (3.5-5.1); Sodium 132 mEq/L (136-145); eGFR For African Americans > 60 (> 60); eGFR For Non-African Americans > 60 (> 60)
[2020-12-26] MEDS: Nicotine 21 MG PATCH.TD24 TD SCH (08:58)
[2020-12-26] MEDS: Thiamine (B-1) 100 MG TABLET PO SCH (08:58)
[2020-12-26] MEDS: Vitamin B Complex/Vit C/Vit E 1 EACH TABLET PO SCH (08:58)
[2020-12-26] MEDS: Aspirin Enteric Coated 81 MG Tablet PO SCH (08:58)
[2020-12-26] MEDS: Metoprolol XL (24 HR) Succ 25 MG TAB.ER.24H PO SCH ×2 (08:59→20:24)
[2020-12-26] MEDS ORDERED: *HR* Warfarin 7.5 MG TABLET PO ONE (18:00)
[2020-12-26] MEDS ORDERED: Warfarin perPT PO PRN (18:00)
[2020-12-27 04:07] LABS: Basophils # 0.1 K/mcL (0.0-0.2); Basophils % 0.8 %; Eosinophils # 0.2 K/mcL (0.0-0.6); Eosinophils % 2.9 %; Immature Granulocytes % 0.6 % (0-4); Lymphocytes % 16.1 %; Mean Corpuscular HGB Conc 32.3 g/dL (31.6-35.5); Mean Corpuscular Volume 86.8 fL (83.0-100.0); Mean Platelet Volume 10.2 fL (9.4-12.4); Monocytes # 0.7 K/mcL (0.0-1.3); Monocytes % 11.3 %; Neutrophils # 4.3 K/mcL (1.6-8.9); Platelet Count 299 K/mcL (140-400); Red Blood Count 3.57 M/mcL (4.19-5.50); Red Cell Distribution Width 15.5 % (11.5-14.5); Segmented Neutrophils % 68.3 %; White Blood Count 6.2 K/mcL (4.3-11.1)
[2020-12-27 04:11] LABS: BUN/Creatinine Ratio 8 (6-26); Blood Urea Nitrogen 6 mg/dL (8-23); Calcium 9.2 mg/dL (8.6-10.3); Carbon Dioxide 27 mEq/L (23-29); Chloride 101 mEq/L (98-107); Glucose 110 mg/dL (70-105); Magnesium 1.6 mg/dL (1.6-2.6); Osmolality,Calculated 274 (280-300); Potassium 4.1 mEq/L (3.5-5.1); Sodium 133 mEq/L (136-145); eGFR For African Americans > 60 (> 60); eGFR For Non-African Americans > 60 (> 60)
[2020-12-27 04:41] LABS: INR 1.7
[2020-12-27] MEDS: levETIRAcetam 250 MG TABLET PO SCH ×2 (05:44→17:14)
[2020-12-27] MEDS: Thiamine (B-1) 100 MG TABLET PO SCH (08:07)
[2020-12-27] MEDS: Vitamin B Complex/Vit C/Vit E 1 EACH TABLET PO SCH (08:07)
[2020-12-27] MEDS: Aspirin Enteric Coated 81 MG Tablet PO SCH (08:08)
[2020-12-27] MEDS: Acetaminophen 325 MG TABLET PO PRN ×3 (08:08→20:46)
[2020-12-27] MEDS: Metoprolol XL (24 HR) Succ 25 MG TAB.ER.24H PO SCH ×2 (08:09→20:46)
[2020-12-27] MEDS: Nicotine 21 MG PATCH.TD24 TD SCH (08:09)
[2020-12-27] MEDS ORDERED: *HR* Warfarin 7.5 MG TABLET PO ONE (18:00)
[2020-12-28] MEDS: levETIRAcetam 250 MG TABLET PO SCH (04:49)
[2020-12-28] MEDS: Acetaminophen 325 MG TABLET PO PRN ×2 (04:50→12:30)
[2020-12-28 05:24] LABS: Basophils % 0.4 %; Eosinophils # 0.1 K/mcL (0.0-0.6); Eosinophils % 0.8 %; Hematocrit 31.9 % (37.5-50.1); Hemoglobin 10.7 g/dL (12.9-16.9); Immature Granulocytes % 0.4 % (0-4); Lymphocytes # 1.4 K/mcL (0.6-4.6); Lymphocytes % 16.2 %; Mean Corpuscular HGB Conc 33.5 g/dL (31.6-35.5); Mean Corpuscular Hemoglobin 28.9 pg (28.0-33.3); Mean Corpuscular Volume 86.2 fL (83.0-100.0); Mean Platelet Volume 10.3 fL (9.4-12.4); Monocytes # 0.9 K/mcL (0.0-1.3); Monocytes % 11.1 %; Neutrophils # 5.9 K/mcL (1.6-8.9); Platelet Count 291 K/mcL (140-400); Red Cell Distribution Width 15.9 % (11.5-14.5); Segmented Neutrophils % 71.1 %; White Blood Count 8.3 K/mcL (4.3-11.1)
[2020-12-28 05:35] LABS: INR 2.2; Prothrombin Time 23.9 Seconds (9.4-12.1)
[2020-12-28 05:48] LABS: BUN/Creatinine Ratio 10 (6-26); Blood Urea Nitrogen 8 mg/dL (8-23); Calcium 9.1 mg/dL (8.6-10.3); Carbon Dioxide 28 mEq/L (23-29); Chloride 99 mEq/L (98-107); Glucose 110 mg/dL (70-105); Magnesium 1.6 mg/dL (1.6-2.6); Osmolality,Calculated 275 (280-300); Potassium 4.2 mEq/L (3.5-5.1); Sodium 133 mEq/L (136-145); eGFR For African Americans > 60 (> 60); eGFR For Non-African Americans > 60 (> 60)
[2020-12-28 07:05] VITALS: BP 95/64; PULSE 84; TEMP 98.9; O2SAT 93
[2020-12-28] MEDS: Metoprolol XL (24 HR) Succ 25 MG TAB.ER.24H PO SCH (08:34)
[2020-12-28] MEDS: Vitamin B Complex/Vit C/Vit E 1 EACH TABLET PO SCH (08:42)
[2020-12-28] MEDS: Thiamine (B-1) 100 MG TABLET PO SCH (08:42)
[2020-12-28] MEDS: Aspirin Enteric Coated 81 MG Tablet PO SCH (08:43)
[2020-12-28] MEDS: Nicotine 21 MG PATCH.TD24 TD SCH (08:43)
[2020-12-28] MEDS ORDERED: *HR* Warfarin 5 MG TABLET PO ONE (18:00)
== END 2020-12-28 14:46 | disposition left against medical advice (07) | DRG 894 ==
LOC: EMEROOARM 18:31 → CDU 18:31 → SUATTDRO 12-16 01:36 → OBSVTOIN 12-16 01:36 → CDU 12-16 03:30 → UNDODISIN 12-16 18:50 → 2NNU 12-16 19:25 → 2ANU 12-20 04:52
PROVIDERS: ADMIT Family Medicine; ATTEND Pharmacist